=== PATIENT | male | born 1995 | race Caucasian/White ===

== ENCOUNTER 2023-07-29 12:13 | Observation (INO) | payer SELFPAY ==
[2023-07-29 13:18] LABS: Basophils # (A) 0.1 k/uL (0-0.2); Basophils % (A) 0 %; Eosinophils # (A) 0.1 k/uL (0-0.7); Eosinophils % (A) 0 %; HCT 52.1 % (39.0-53.0); HGB 17.2 gm/dL (13.0-17.5); Lymphocytes # (A) 1.7 k/uL (1.0-4.8); Lymphocytes % (A) 14 %; MCH 32.5 pg (25.0-35.0); MCV 98.5 fL (80.0-100.0); Mean Platelet Volume 7.6; Monocytes # (A) 0.3 k/uL (0-1.0); Monocytes % (A) 3 %; Neutrophils # (A) 10.6 k/uL (1.3-7.7); Neutrophils % (A) 82 %; Platelet Count 274 k/uL (150-450); RBC 5.29 m/uL (4.30-5.90); RDW 12.7 % (11.5-15.5); WBC 12.9 k/uL (3.8-10.6)
[2023-07-29 13:23] LABS: ALT 22 U/L (4-49); African American GFR (CKD) >90 (>60 ml/min/1.73 sqM); Albumin 5.4 g/dL (3.5-5.0); Alcohol 46 mg/dL; Anion Gap 21 mmol/L; Blood Urea Nitrogen 15 mg/dL (9-20); Calcium 9.4 mg/dL (8.4-10.2); Carbon Dioxide 15 mmol/L (22-30); Chloride 103 mmol/L (98-107); Creatine Kinase 118 U/L (55-170); Glucose 71 mg/dL (74-99); Lipase 58 U/L (23-300); Non-African American GFR(CKD) >90 (>60 ml/min/1.73 sqM); Sodium 139 mmol/L (137-145); Total Protein 7.9 g/dL (6.3-8.2)
[2023-07-29 13:25] LABS: Magnesium 1.3 mg/dL (1.6-2.3); Potassium 4.4 mmol/L (3.5-5.1)
[2023-07-29 13:26] LABS: AST 45 U/L (17-59); Alkaline Phosphatase 76 U/L (38-126)
[2023-07-29] MEDS: LORazepam 2 MG/ML INJ IV STA (13:27)
[2023-07-29] MEDS: SODIUM CHLORIDE 0.9% 1,000 ML IV STA (13:29)
[2023-07-29] MEDS: ONDANSETRON 4 MG/2 ML VIAL IVP STA (13:52)
[2023-07-29 14:04] LABS: Appearance,Urine Clear (Clear); Bilirubin,Urine Negative (Negative); Blood,Urine Negative (Negative); Color,Urine Light Yellow; Glucose,Urine (UA) Negative (Negative); Leukocyte Esterase,Urine Negative (Negative); Nitrite,Urine Negative (Negative); PH, Urine 5.5 (5.0-8.0); Protein,Urine Trace (Negative); Specific Gravity,Urine 1.023 (1.001-1.035); Urobilinogen,Urine <2.0 mg/dL (<2.0)
[2023-07-29 14:11] LABS: Ketones,Urine 3+ (Negative)
[2023-07-29 14:13] LABS: Amphetamine Screen,Urine Not Detected (NotDetected); Barbiturate Screen,Urine Not Detected (NotDetected); Benzodiazepines Screen,Urine Not Detected (NotDetected); Cocaine Screen,Urine Not Detected (NotDetected); Methadone Screen, Urine Not Detected (NotDetected); Opiate Screen,Urine Not Detected (NotDetected); Oxycodone Screen, Urine Not Detected (NotDetected); Phencyclidine Screen,Urine Not Detected (NotDetected); Tricyclic Antidepressant,Urine Not Detected (NotDetected); Urn Cannabinoid Scrn Detected (NotDetected)
[2023-07-29] MEDS: traMADol 50 MG TAB PO STA (15:39)
[2023-07-29] MEDS ORDERED: NALOXONE 0.4 MG/ML 1 ML VIAL IV PRN (16:36)
--- NOTE | 2023-07-29 16:36 | ED ---
Alcohol HPI - General Chief Complaint: Alcohol Stated Complaint: Seizure @10am, vomiting blood Time Seen by Provider: 07/29/23 12:31 Source: patient Mode of arrival: wheelchair Limitations: no limitations - History of Present Illness Initial Comments: 28-year-old male with past medical history of daily benzodiazepine use, heavy daily alcohol use who presents to the emergency department with reported seizure from withdrawal. States that he was at home when he did not feel well. He laid down on the ground and suspected that he had a seizure because he states he woke up on the ground after some time had passed. Patient reports to a history of alcohol and benzodiazepine withdrawal seizures. States he last drank last night. He normally drinks 1/5 a day. Also reports that he takes 1 mg of Klonopin twice daily. He is from [place]. States that he has been in [place] for some time and ran out of his medications. States that he had half a Klonopin left and took it this morning in order to help combat his symptoms however it did not help him. Reports to history of withdrawal seizures in the past. He has had 2 episodes of vomiting. Mclean that he had seen some blood in his vomit. Denies history of varices or liver cirrhosis. No other alleviating, precipitating modifying factors - Related Data Home Medications Medication Instructions Recorded Confirmed methocarbamoL [Robaxin] 500 mg PO TID 07/29/23 07/29/23 traMADol HCL 50 mg PO BID PRN 07/29/23 07/29/23 Previous Rx's Medication Instructions Recorded Pantoprazole [Protonix] 40 mg PO DAILY #30 tab 07/31/23 Thiamine [Vitamin B-1] 100 mg PO DAILY #60 tab 07/31/23 Allergies Allergy/AdvReac Type Severity Reaction Status Date / Time iodine AdvReac 'PAIN' Verified 07/29/23 14:59 Review of Systems ROS Statement: Those systems with pertinent positive or pertinent negative responses have been documented in the HPI. ROS Other: All systems not noted in ROS Statement are negative. Past Medical History Past Medical History: Hypertension Past Surgical History: No Surgical Hx Reported Past Psychological History: Anxiety, Depression Smoking Status: Current every day smoker Past Alcohol Use History: Abuse, Heavy Past Drug Use History: None Reported General Exam Limitations: no limitations General appearance: alert, in no apparent distress Head exam: Present: atraumatic, normocephalic, normal inspection Eye exam: Present: normal appearance, PERRL, EOMI. Absent: scleral icterus, conjunctival injection, periorbital swelling ENT exam: Present: normal exam, mucous membranes moist Neck exam: Present: normal inspection. Absent: tenderness, meningismus, lymphadenopathy Respiratory exam: Present: normal lung sounds bilaterally. Absent: respiratory distress, wheezes, rales, rhonchi, stridor Cardiovascular Exam: Present: normal rhythm, tachycardia, normal heart sounds. Absent: systolic murmur, diastolic murmur, rubs, gallop, clicks GI/Abdominal exam: Present: soft, normal bowel sounds. Absent: distended, tenderness, guarding, rebound, rigid Extremities exam: Present: normal inspection, full ROM, normal capillary refill. Absent: tenderness, pedal edema, joint swelling, calf tenderness Back exam: Present: normal inspection Neurological exam: Present: alert, oriented X3, CN II-XII intact Psychiatric exam: Present: normal affect, normal mood Skin exam: Present: warm, dry, intact, normal color. Absent: rash Course Vital Signs 07/29/23 07/29/23 07/29/23 12:18 14:16 18:06 Temperature 97.7 F Pulse Rate 111 H 97 90 Pulse Rate [ Cogeneration Operator ] Respiratory 18 18 18 Rate Blood Pressure 124/81 127/69 103/61 Blood Pressure [Right Arm] O2 Sat by Pulse 100 99 99 Oximetry 07/29/23 07/29/23 07/29/23 19:16 20:50 22:30 Temperature Pulse Rate 95 91 98 Pulse Rate [ Cogeneration Operator ] Respiratory 18 18 18 Rate Blood Pressure 106/62 114/67 115/55 Blood Pressure [Right Arm] O2 Sat by Pulse 99 99 100 Oximetry 07/29/23 07/30/23 07/30/23 23:20 00:08 01:00 Temperature Pulse Rate 91 97 63 Pulse Rate [ Cogeneration Operator ] Respiratory 18 18 16 Rate Blood Pressure 107/61 105/59 112/76 Blood Pressure [Right Arm] O2 Sat by Pulse 100 99 98 Oximetry 07/30/23 07/30/23 07/30/23 02:00 03:00 09:32 Temperature 97.8 F Pulse Rate 70 84 Pulse Rate [ 83 Cogeneration Operator ] Respiratory 16 16 16 Rate Blood Pressure 122/79 122/80 Blood Pressure 113/72 [Right Arm] O2 Sat by Pulse 98 100 96 Oximetry 07/30/23 12:36 Temperature Pulse Rate Pulse Rate [ 92 Cogeneration Operator ] Respiratory 16 Rate Blood Pressure Blood Pressure 111/72 [Right Arm] O2 Sat by Pulse 100 Oximetry Medical Decision Making - Medical Decision Making Was pt. sent in by a medical professional or institution (, PA, [facility], urgent care, hospital, or snf...) When possible be specific @ -No Did you speak to anyone other than the patient for history (EMS, parent, family, police, friend...)? What history was obtained from this source @ -No Did you review nursing and triage notes (agree or disagree)? Why? @ -I reviewed and agree with nursing and triage notes Were old charts reviewed (outside hosp., previous admission, EMS record, old EKG, old radiological studies, urgent care reports/EKG's, snf records)? Report findings @ -No old charts were reviewed Differential Diagnosis (chest pain, altered mental status, abdominal pain women, abdominal pain men, vaginal bleeding, weakness, fever, dyspnea, syncope, headache, dizziness, GI bleed, back pain, seizure, CVA, palpatations, mental health, musculoskeletal)? @ -Differential Seizure: Recurrent seizure disorder, febrile seizure, alcohol withdrawal, stimulants, meningitis, encephalitis, intercranial hemorrhage, intracranial tumor, stroke, eclampsia, thyrotoxicosis, hypocalcemia, hyponatremia, hypernatremia, hypomagnesemia, psychogenic, this is not meant to be an all-inclusive list. EKG interpreted by me (3pts min.). @ -Not done X-rays interpreted by me (1pt min.). @ -None done CT interpreted by me (1pt min.). @ -None done U/S interpreted by me (1pt. min.). @ -None done What testing was considered but not performed or refused? (CT, X-rays, U/S, labs)? Why? @ -None What meds were considered but not given or refused? Why? @ -None Did you discuss the management of the patient with other professionals (professionals i.e. , JENSEN, [facility], lab, RT, psych nurse, social human services assistants, director media, teacher, upscale security officer, classification case manager)? Give summary @ -Spoke with Dr. Freedman for admission Was smoking cessation discussed for >3mins.? @ -No Was critical care preformed (if so, how long)? @ -No Were there social determinants of health that impacted care today? How? (Homelessness, low income, unemployed, alcoholism, drug addiction, transportation, low edu. Level, literacy, decrease access to med. care, [facility], rehab)? @ -Patient lives in [place] and is here without his medications Was there de-escalation of care discussed even if they declined (Discuss DNR or withdrawal of care, Hospice)? DNR status @ -No What co-morbidities impacted this encounter? (DM, HTN, Smoking, COPD, CAD, Cancer, CVA, ARF, Chemo, Hep., AIDS, mental health diagnosis, sleep apnea, morbid obesity)? @ -Alcohol abuse Was patient admitted / discharged? Hospital course, mention meds given and route , prescriptions, significant lab abnormalities, going to OR and other pertinent info. @ -Upon arrival patient seen and evaluated in room 28. Thorough history and physical exam was performed. IV access was established. Patient was given a dose of Ativan, IV fluids and Zofran. He is reevaluated and states he feels improved. Patient's heart rate remains to be elevated. Patient did have a seizure as his lactic acid level is high. I did recommend that the patient stay hospitalized for acute alcohol withdrawal with seizure for which the patient was agreeable. Spoke with Dr. Freedman for admission Undiagnosed new problem with uncertain prognosis? @ -No Drug Therapy requiring intensive monitoring for toxicity (Heparin, Nitro, Insulin, Cardizem)? @ -No Were any procedures done? @ -No Diagnosis/symptom? @ -Acute seizure, suspected alcohol and benzo withdrawal, history of alcohol abuse Acute, or Chronic, or Acute on Chronic? @ -[Acute Uncomplicated (without systemic symptoms) or Complicated (systemic symptoms)? @ -Complicated Side effects of treatment? @ -No Exacerbation, Progression, or Severe Exacerbation? @ -No Poses a threat to life or bodily function? How? (Chest pain, USA, DE, pneumonia, PE, COPD, DKA, ARF, appy, cholecystitis, CVA, Diverticulitis, Homicidal, Suicidal, threat to staff... and all critical care pts) @ -Yes as patient is having seizures from withdrawal - Lab Data Result diagrams: 07/31/23 08:21 07/30/23 00:45 Lab Results 0507/29/23 07/29/23 Range/Units 12:49 12:49 12:49 WBC 12.9 H (3.8-10.6) k/uL RBC 5.29 (4.30-5.90) m/uL Hgb 17.2 (13.0-17.5) gm/dL Hct 52.1 (39.0-53.0) % MCV 98.5 (80.0-100.0) fL MCH 32.5 (25.0-35.0) pg MCHC 33.0 (31.0-37.0) g/dL RDW 12.7 (11.5-15.5) % Plt Count 274 (150-450) k/uL MPV 7.6 Neutrophils % 82 % Lymphocytes % 14 % Monocytes % 3 % Eosinophils % 0 % Basophils % 0 % Neutrophils # 10.6 H (1.3-7.7) k/uL Lymphocytes # 1.7 (1.0-4.8) k/uL Monocytes # 0.3 (0-1.0) k/uL Eosinophils # 0.1 (0-0.7) k/uL Basophils # 0.1 (0-0.2) k/uL Sodium 139 (137-145) mmol/L Potassium 4.4 (3.5-5.1) mmol/L Chloride 103 (98-107) mmol/L Carbon Dioxide 15 L (22-30) mmol/L Anion Gap 21 mmol/L BUN 15 (9-20) mg/dL Creatinine 0.88 (0.66-1.25) mg/dL Est GFR (CKD-EPI)AfAm >90 (>60 ml/min/1.73 sqM) Est GFR (CKD-EPI)NonAf >90 (>60 ml/min/1.73 sqM) Glucose 71 L (74-99) mg/dL Lactic Ac Sepsis Rflx Plasma Lactic Acid Adrian 6.0 H* (0.7-2.0) mmol/L Calcium 9.4 (8.4-10.2) mg/dL Magnesium 1.3 L (1.6-2.3) mg/dL Total Bilirubin 1.0 (0.2-1.3) mg/dL AST 45 (17-59) U/L ALT 22 (4-49) U/L Alkaline Phosphatase 76 (38-126) U/L Creatine Kinase 118 (55-170) U/L Total Protein 7.9 (6.3-8.2) g/dL Albumin 5.4 H (3.5-5.0) g/dL Lipase 58 (23-300) U/L Urine Color Urine Appearance (Clear) Urine pH (5.0-8.0) Ur Specific [place] (1.001-1.035) Urine Protein (Negative) Urine Glucose (UA) (Negative) Urine Ketones (Negative) Urine Blood (Negative) Urine Nitrite (Negative) Urine Bilirubin (Negative) Urine Urobilinogen (<2.0) mg/dL Ur Leukocyte Esterase (Negative) Urine Opiates Screen (NotDetected) Ur Oxycodone Screen (NotDetected) Urine Methadone Screen (NotDetected) Ur Barbiturates Screen (NotDetected) U Tricyclic Antidepress (NotDetected) Ur Phencyclidine Scrn (NotDetected) Ur Amphetamines Screen (NotDetected) U Methamphetamines Scrn (NotDetected) U Benzodiazepines Scrn (NotDetected) Urine Cocaine Screen (NotDetected) U Marijuana (THC) Screen (NotDetected) Serum Alcohol 46 mg/dL 07/29/23 07/29/23 07/29/23 Range/Units 13:29 13:56 15:55 WBC (3.8-10.6) k/uL RBC (4.30-5.90) m/uL Hgb (13.0-17.5) gm/dL Hct (39.0-53.0) % MCV (80.0-100.0) fL MCH (25.0-35.0) pg MCHC (31.0-37.0) g/dL RDW (11.5-15.5) % Plt Count (150-450) k/uL MPV Neutrophils % % Lymphocytes % % Monocytes % % Eosinophils % % Basophils % % Neutrophils # (1.3-7.7) k/uL Lymphocytes # (1.0-4.8) k/uL Monocytes # (0-1.0) k/uL Eosinophils # (0-0.7) k/uL Basophils # (0-0.2) k/uL Sodium (137-145) mmol/L Potassium (3.5-5.1) mmol/L Chloride (98-107) mmol/L Carbon Dioxide (22-30) mmol/L Anion Gap mmol/L BUN (9-20) mg/dL Creatinine (0.66-1.25) mg/dL Est GFR (CKD-EPI)AfAm (>60 ml/min/1.73 sqM) Est GFR (CKD-EPI)NonAf (>60 ml/min/1.73 sqM) Glucose (74-99) mg/dL Lactic Ac Sepsis Rflx Y Plasma Lactic Acid Adrian 2.0 (0.7-2.0) mmol/L Calcium (8.4-10.2) mg/dL Magnesium (1.6-2.3) mg/dL Total Bilirubin (0.2-1.3) mg/dL AST (17-59) U/L ALT (4-49) U/L Alkaline Phosphatase (38-126) U/L Creatine Kinase (55-170) U/L Total Protein (6.3-8.2) g/dL Albumin (3.5-5.0) g/dL Lipase (23-300) U/L Urine Color Light Yellow Urine Appearance Clear (Clear) Urine pH 5.5 (5.0-8.0) Ur Specific [place] 1.023 (1.001-1.035) Urine Protein Trace H (Negative) Urine Glucose (UA) Negative (Negative) Urine Ketones 3+ H (Negative) Urine Blood Negative (Negative) Urine Nitrite Negative (Negative) Urine Bilirubin Negative (Negative) Urine Urobilinogen <2.0 (<2.0) mg/dL Ur Leukocyte Esterase Negative (Negative) Urine Opiates Screen Not Detected (NotDetected) Ur Oxycodone Screen Not Detected (NotDetected) Urine Methadone Screen Not Detected (NotDetected) Ur Barbiturates Screen Not Detected (NotDetected) U Tricyclic Antidepress Not Detected (NotDetected) Ur Phencyclidine Scrn Not Detected (NotDetected) Ur Amphetamines Screen Not Detected (NotDetected) U Methamphetamines Scrn Not Detected (NotDetected) U Benzodiazepines Scrn Not Detected (NotDetected) Urine Cocaine Screen Not Detected (NotDetected) U Marijuana (THC) Screen Detected H (NotDetected) Serum Alcohol mg/dL Disposition Clinical Impression: Alcohol withdrawal syndrome, Alcohol withdrawal seizure, Lactic acidosis Disposition: ADMITTED IP TO THIS [facility] Condition: Stable Is patient prescribed a controlled substance at d/c from ED?: No Time of Disposition: 16:36 Decision to Admit Reason: Admit from EC Decision Date: 07/29/23 Decision Time: 16:36
[2023-07-29] MEDS ORDERED: LORazepam 2 MG/ML INJ IV PRN (16:41)
[2023-07-29] MEDS: THIAMINE 100 MG/ML 2 ML VIAL IM STA (16:54)
[2023-07-29] MEDS: MAGNESIUM SULFATE-D5W PMX 1 GM in DEXTROSE/WATER 1 100ML.BAG IVPB SCH (16:56)
--- NOTE | 2023-07-29 17:20 | P.HPIM ---
History of Present Illness H&P Date: 07/29/23 Patient is a 28-year-old male lives in [place], with a history of anxiety and alcohol dependence presenting with withdrawal seizures. He drinks close to 1 L of rum every day. Last drink was last night. He noted that this morning he woke up and was feeling like he was going to have a seizure. He then was seated on the chair and noticed his entire body twitching, was completely aware of his surroundings and what was happening. He denies ever losing consciousness. He claims that both side of his body was twitching. He denies any tongue biting, loss of bowel or bladder control. He claims that he had something similar 2 years ago when he was admitted for alcohol withdrawal seizures. He came to [place] for about 1 month, plan is to go back to [place] in about 2 weeks. He has never been to alcohol rehab. He also smokes 1 pack/day, and uses marijuana. He claims that today he was feeling nausea, and had 1 episode of emesis where he noted some bright red blood. Has occasional abdominal pain, but denies any urinary or bowel complaints. In the ED, temperature was 97.7, pulse 111, respiratory rate 18, blood pressure 124/81, saturating at 100% on room air. WBC 12.9, bicarb 15, anion gap 21, creatinine 0.88, lactate 6 downtrended to 2, magnesium 1.3, lipase 58, total alcohol 46, urinalysis negative for nitrites and leukocyte esterase, toxicology positive for marijuana. Patient being admitted for alcohol withdrawal. Pertinent positives and negatives as discussed in HPI, a complete review of systems was performed and all other systems are negative. Patient seen and examined at bedside. Vital signs reviewed General: nontoxic, no distress, appears at stated age Derm: warm, dry Head: atraumatic, normocephalic, symmetric Eyes: EOMI, no lid lag, anicteric sclera, pupils equal round reactive to light ENT: Nose and ears atraumatic Neck: No thyromegaly, supple Mouth: no lip lesion, mucus membranes moist Cardiovascular: S1S2 reg, tachycardic, no murmur, no edema Lungs: clear to auscultation bilateral, no rhonchi, no rales, no wheeze, no accessory muscle use Abdominal: soft, nontender to palpation, no guarding, no appreciable organomegaly Ext: no gross muscle atrophy, muscle strength muscle strength 5 out of 5 in all 4 extremities, no contractures Neuro: CN II-XII grossly intact, extension tremor bilaterally Psych: Alert, oriented, appropriate affect Assessment/Plan: Active: Acute alcohol withdrawal Alcohol dependence Alcohol intoxication Possible alcohol withdrawal seizure Anxiety disorder and chronic benzodiazepine use Sinus tachycardia Nausea and vomiting -Was given IV fluids in the ED, continue normal saline at 130 cc an hour -IV Ativan per CIWA scores, monitor for sedation -Thiamine oral 100 mg daily -Unlikely to be alcohol withdrawal seizures given history, but will place patient on seizure precautions. -Monitor on telemetry -Zofran 4 mg IV every 6 hours as needed Leukocytosis, likely reactive -Repeat CBC tomorrow Hypomagnesemia -Given 2 g of IV magnesium sulfate in the ED -Repeat magnesium level tomorrow Acute GI bleed -Likely gastritis in the setting of chronic alcohol use -Started on IV Protonix 40 twice daily -Monitor hemoglobin tomorrow Resolved: Lactic acidosis Metabolic acidosis The patient is admitted with an anticipated less than 2 midnight stay as observation status for evaluation of alcohol withdrawal. Surrogate decision-maker: Sibling CODE STATUS: Full code DVT prophylaxis: Lovenox Anticipated discharge date: Pending clinical course Anticipated discharge place: Pending clinical course A total of 55 minutes was spent on the care of this complex patient more than 50% of the time was spent in counseling and care coordination. Past Medical History Past Medical History: Hypertension Past Surgical History: No Surgical Hx Reported Past Psychological History: Anxiety, Depression Smoking Status: Current every day smoker Past Alcohol Use History: Abuse, Heavy Past Drug Use History: None Reported Medications and Allergies Home Medications Medication Instructions Recorded Confirmed Type clonazePAM [KlonoPIN] 1 mg PO BID 07/29/23 07/29/23 History methocarbamoL [Robaxin] 500 mg PO TID 07/29/23 07/29/23 History traMADol HCL 50 mg PO BID PRN 07/29/23 07/29/23 History Allergies Allergy/AdvReac Type Severity Reaction Status Date / Time iodine AdvReac 'PAIN' Verified 07/29/23 14:59 Physical Exam Vitals: Vital Signs Temp Pulse Resp BP Pulse Ox 07/29/23 14:16 97 18 127/69 99 07/29/23 12:18 97.7 F 111 H 18 124/81 100 Intake and Output 07/29/23 07/29/23 07/29/23 06:59 14:59 22:59 Other: Weight 54.885 kg Results CBC & Chem 7: 07/29/23 12:49 07/29/23 12:49 Labs: Abnormal Lab Results - Last 24 Hours (Table) 07/29/23 07/29/23 07/29/23 Range/Units 12:49 12:49 12:49 WBC 12.9 H (3.8-10.6) k/uL Neutrophils # 10.6 H (1.3-7.7) k/uL Carbon Dioxide 15 L (22-30) mmol/L Glucose 71 L (74-99) mg/dL Plasma Lactic Acid Adrian 6.0 H* (0.7-2.0) mmol/L Magnesium 1.3 L (1.6-2.3) mg/dL Albumin 5.4 H (3.5-5.0) g/dL Urine Protein (Negative) Urine Ketones (Negative) U Marijuana (THC) Screen (NotDetected) 07/29/23 Range/Units 13:56 WBC (3.8-10.6) k/uL Neutrophils # (1.3-7.7) k/uL Carbon Dioxide (22-30) mmol/L Glucose (74-99) mg/dL Plasma Lactic Acid Adrian (0.7-2.0) mmol/L Magnesium (1.6-2.3) mg/dL Albumin (3.5-5.0) g/dL Urine Protein Trace H (Negative) Urine Ketones 3+ H (Negative) U Marijuana (THC) Screen Detected H (NotDetected)
[2023-07-29] MEDS: SODIUM CHLORIDE 0.9% 1,000 ML IV SCH (18:05)
[2023-07-29] MEDS: PANTOPRAZOLE 40 MG/10 ML VIAL IVP SCH (20:51)
[2023-07-29] MEDS: LORazepam 2 MG/ML INJ IV PRN (21:14)
[2023-07-29] MEDS: ONDANSETRON 4 MG/2 ML VIAL IVP PRN (21:14)
[2023-07-30 00:53] LABS: Basophils % (A) 0 %; Eosinophils # (A) 0.1 k/uL (0-0.7); Eosinophils % (A) 2 %; Lymphocytes # (A) 1.5 k/uL (1.0-4.8); Lymphocytes % (A) 21 %; MCH 32.8 pg (25.0-35.0); MCHC 34.5 g/dL (31.0-37.0); MCV 95.1 fL (80.0-100.0); Mean Platelet Volume 7.2; Monocytes # (A) 0.5 k/uL (0-1.0); Monocytes % (A) 7 %; Neutrophils # (A) 4.8 k/uL (1.3-7.7); Neutrophils % (A) 69 %; Platelet Count 194 k/uL (150-450); RBC 4.32 m/uL (4.30-5.90); RDW 12.7 % (11.5-15.5); WBC 6.9 k/uL (3.8-10.6)
[2023-07-30 00:55] LABS: HGB 14.1 gm/dL (13.0-17.5)
[2023-07-30 01:03] LABS: African American GFR (CKD) >90 (>60 ml/min/1.73 sqM); Anion Gap 6 mmol/L; Blood Urea Nitrogen 16 mg/dL (9-20); Calcium 8.2 mg/dL (8.4-10.2); Carbon Dioxide 22 mmol/L (22-30); Chloride 105 mmol/L (98-107); Glucose 75 mg/dL (74-99); Magnesium 2.3 mg/dL (1.6-2.3); Non-African American GFR(CKD) >90 (>60 ml/min/1.73 sqM); Potassium 3.9 mmol/L (3.5-5.1); Sodium 133 mmol/L (137-145)
[2023-07-30] MEDS: ENOXAPARIN 40 MG/0.4 ML SYRINGE SQ SCH (09:10)
[2023-07-30] MEDS: LORazepam 2 MG/ML INJ IV PRN (09:10)
[2023-07-30] MEDS: THIAMINE 100 MG TAB PO SCH (09:10)
--- NOTE | 2023-07-30 11:19 | P.PN ---
Subjective Progress Note Date: 07/30/23 Hospital Course: 28-year-old male lives in [place], with a history of anxiety and alcohol depen dence presenting with alcohol withdrawal. In the ED, temperature was 97.7, pulse 111, respiratory rate 18, blood pressure 124/81, saturating at 100% on room air. WBC 12.9, bicarb 15, anion gap 21, creatinine 0.88, lactate 6 downtrended to 2, magnesium 1.3, lipase 58, total alcohol 46, urinalysis n egative for nitrites and leukocyte esterase, toxicology positive for marijuana. Patient being admitted for alcohol withdrawal. Also complaining of some hematemesis. Subjective: Patient seen and examined at bedside. No acute events overnight. Pertinent positives and negatives as discussed above, a complete review of systems was performed and all other systems are negative. Vitals Signs Reviewed. General: nontoxic, no distress, appears at stated age Derm: warm, dry Head: atraumatic, normocephalic, symmetric Eyes: EOMI, no lid lag, anicteric sclera, pupils equal round reactive to light ENT: Nose and ears atraumatic Neck: No thyromegaly, supple Mouth: no lip lesion, mucus membranes moist Cardiovascular: S1S2 reg, tachycardic, no murmur, no edema Lungs: clear to auscultation bilateral, no rhonchi, no rales, no wheeze, no accessory muscle use Abdominal: soft, nontender to palpation, no guarding, no appreciable organomegaly Ext: no gross muscle atrophy, muscle strength muscle strength 5 out of 5 in all 4 extremities, no contractures Neuro: CN II-XII grossly intact, extension tremor bilaterally Psych: Alert, oriented, appropriate affect Data Reviewed Today: Pertinent Labs: WBC 6.9, hemoglobin 14.1, sodium 133, potassium 3.9, creatinine 0.91, BUN 16, magnesium 2.3 Imaging: No new imaging Assessment and Plan: Active: Acute alcohol withdrawal Alcohol dependence Alcohol intoxication Alcohol withdrawal seizure, likely Anxiety disorder and chronic benzodiazepine use Sinus tachycardia, resolved Nausea and vomiting, resolved -continue normal saline at 130 cc an hour -IV Ativan per CIWA scores, monitor for sedation -Thiamine oral 100 mg daily -Unlikely to be alcohol withdrawal seizures given history, but will place patient on seizure precautions. -Monitor on telemetry -Zofran 4 mg IV every 6 hours as needed Acute GI bleed -Likely gastritis in the setting of chronic alcohol use -Continue IV Protonix 40 twice daily -Monitor hemoglobin tomorrow Leukocytosis, likely reactive, resolved Hypomagnesemia, resolved Resolved: Lactic acidosis Metabolic acidosis DVT ppx: Lovenox Code status: Full code Anticipated discharge place: Pending clinical course Anticipated discharge time: 1 to 2 days Objective - Vital Signs Vital signs: Vital Signs Temp 97.8 F 07/30/23 09:32 Pulse 83 07/30/23 09:32 Resp 16 07/30/23 09:32 BP 113/72 07/30/23 09:32 Pulse Ox 96 07/30/23 09:32 FiO2 Intake & Output 07/29/23 07/30/23 07/30/23 18:59 06:59 18:59 Intake Total 0 Balance 0 Weight 54.885 kg 54.885 kg Intake: Oral 0 Other: Voiding Method Urinal - Labs CBC & Chem 7: 07/30/23 00:45 07/30/23 00:45 Labs: Abnormal Lab Results - Last 24 Hours (Table) 07/29/23 07/29/23 07/29/23 Range/Units 12:49 12:49 12:49 WBC 12.9 H (3.8-10.6) k/uL Neutrophils # 10.6 H (1.3-7.7) k/uL Sodium (137-145) mmol/L Carbon Dioxide 15 L (22-30) mmol/L Glucose 71 L (74-99) mg/dL Plasma Lactic Acid Adrian 6.0 H* (0.7-2.0) mmol/L Calcium (8.4-10.2) mg/dL Magnesium 1.3 L (1.6-2.3) mg/dL Albumin 5.4 H (3.5-5.0) g/dL Urine Protein (Negative) Urine Ketones (Negative) U Marijuana (THC) Screen (NotDetected) 07/29/23 07/30/23 Range/Units 13:56 00:45 WBC (3.8-10.6) k/uL Neutrophils # (1.3-7.7) k/uL Sodium 133 L (137-145) mmol/L Carbon Dioxide (22-30) mmol/L Glucose (74-99) mg/dL Plasma Lactic Acid Adrian (0.7-2.0) mmol/L Calcium 8.2 L (8.4-10.2) mg/dL Magnesium (1.6-2.3) mg/dL Albumin (3.5-5.0) g/dL Urine Protein Trace H (Negative) Urine Ketones 3+ H (Negative) U Marijuana (THC) Screen Detected H (NotDetected)
[2023-07-30] MEDS: PANTOPRAZOLE 40 MG/10 ML VIAL IVP SCH (19:52)
[2023-07-30] MEDS ORDERED: PANTOPRAZOLE 40 MG TABLET PO SCH (21:00)
[2023-07-30] MEDS ORDERED: LORazepam 1 MG/0.5 ML VIAL IV PRN ×2 (21:26→21:27)
[2023-07-30] MEDS: LORazepam 1 MG/0.5 ML VIAL IV PRN (21:31)
[2023-07-31 04:29] VITALS: RESP 16
[2023-07-31 08:42] LABS: Basophils % (A) 0 %; Eosinophils # (A) 0.1 k/uL (0-0.7); Eosinophils % (A) 1 %; HCT 43.4 % (39.0-53.0); HGB 14.3 gm/dL (13.0-17.5); Lymphocytes # (A) 1.5 k/uL (1.0-4.8); Lymphocytes % (A) 26 %; MCH 32.3 pg (25.0-35.0); MCHC 32.9 g/dL (31.0-37.0); MCV 98.3 fL (80.0-100.0); Mean Platelet Volume 7.2; Monocytes # (A) 0.4 k/uL (0-1.0); Monocytes % (A) 6 %; Neutrophils # (A) 3.9 k/uL (1.3-7.7); Neutrophils % (A) 65 %; Platelet Count 178 k/uL (150-450); RBC 4.41 m/uL (4.30-5.90); RDW 12.3 % (11.5-15.5); WBC 5.9 k/uL (3.8-10.6)
[2023-07-31] MEDS: traMADol 50 MG TAB PO STA (09:39)
[2023-07-31] MEDS: NICOTINE 21MG/24HR PATCH TRANSDERM SCH (09:39)
[2023-07-31 11:46] VITALS: BP 122/61; PULSE 68; TEMP 97.7
--- NOTE | 2023-07-31 12:37 | P.DS ---
Providers Date of admission: 07/29/23 16:39 Expected date of discharge: 07/31/23 Attending physician: Marky Freedman MD Primary care physician: Stated None Hospital Course: Discharge Diagnosis: Acute alcohol withdrawal Alcohol dependence Alcohol intoxication Alcohol withdrawal seizure, unlikely Anxiety disorder and chronic benzodiazepine use Sinus tachycardia Nausea and vomiting Acute GI bleeding Alcoholic gastritis Leukocytosis, likely reactive Hypomagnesemia Lactic acidosis Hospital Course: 28-year-old male lives in [place], with a history of anxiety and alcohol dependence presenting with alcohol withdrawal. In the ED, temperature was 97.7, pulse 111, respiratory rate 18, blood pressure 124/81, saturating at 100% on room air. WBC 12.9, bicarb 15, anion gap 21, creatinine 0.88, lactate 6 downtrended to 2, magnesium 1.3, lipase 58, total alcohol 46, urinalysis negative for nitrites and leukocyte esterase, toxicology positive for marijuana. Patient being admitted for alcohol withdrawal. Also complaining of some hematemesis likely from gastritis. Hemoglobin has been stable. Patient received IV Ativan for alcohol withdrawal. Currently asymptomatic at the time of discharge. He will follow-up with PCP and alcohol rehab back in [place] in couple of weeks. Patient seen and examined at bedside. Vital signs reviewed and stable. General: Nontoxic, no distress, appears at stated age Derm: Warm, dry Head: Atraumatic, normocephalic, symmetric Eyes: EOMI, no lid lag, anicteric sclera Mouth: No lip lesion, mucus membranes moist Cardiovascular: S1S2 reg, no murmur Lungs: CTA bilateral, no rhonchi, no rales, no accessory muscle use Abdominal: Soft, nontender to palpation, no guarding, no appreciable organomegaly Ext: No gross muscle atrophy, no edema, no contractures Neuro: CN II-XI grossly intact, no focal neuro deficits Psych: Alert, oriented, appropriate affect A total of 33 minutes of time were spent preparing this complex discharge summary. Patient was discharged on 07/31/2023 at 956. Patient Condition at Discharge: Stable Plan - Discharge Summary Discharge Rx Participant: Yes New Discharge Prescriptions: New Pantoprazole [Protonix] 40 mg PO DAILY #30 tab Thiamine [Vitamin B-1] 100 mg PO DAILY #60 tab Continue traMADol HCL 50 mg PO BID PRN PRN Reason: Pain methocarbamoL [Robaxin] 500 mg PO TID Discontinued clonazePAM [KlonoPIN] 1 mg PO BID Discharge Medication List methocarbamoL [Robaxin] 500 mg PO TID 07/29/23 [History] traMADol HCL 50 mg PO BID PRN 07/29/23 [History] Pantoprazole [Protonix] 40 mg PO DAILY #30 tab 07/31/23 [Rx] Thiamine [Vitamin B-1] 100 mg PO DAILY #60 tab 07/31/23 [Rx] Follow up Appointment(s)/Referral(s): None,Stated [Primary Care Provider] - 1-2 days Patient Instructions/Handouts: Alcohol Withdrawal (DC), Alcohol Dependence (DC) Activity/Diet/Wound Care/Special Instructions: Please see your PCP and rehab in [place]. Discharge Disposition: HOME SELF-CARE
== END 2023-07-31 13:26 | disposition home or self-care (01) ==
LOC: EC 12:13 → 3SCARD 16:39
PROVIDERS: ADMIT Student in an Organized Health Care Education/Training Program; ATTEND Student in an Organized Health Care Education/Training Program
DX: F10.229 Alcohol dependence with intoxication, unspecified (principal); F10.239 Alcohol dependence with withdrawal, unspecified; F41.9 Anxiety disorder, unspecified; F32.A Depression, unspecified; E83.42 Hypomagnesemia; K29.20 Alcoholic gastritis without bleeding; Z79.899 Other long term (current) drug therapy; R00.0 Tachycardia, unspecified; D72.829 Elevated white blood cell count, unspecified
CPT/HCPCS: 96376 ×3; 96361; 96365; 96366; 96372 ×2; 96375; 99285; 36415; 80053; 80048; 82550; 83605; 83690; 83735 ×2; 85025 ×3; 81003; 80306; 80320; G0378 ×3; S4990; J2060 ×3; J3411; J2405 ×2; J1650; J3475; C9113 ×3